=== PATIENT | female | born 1960 | race Caucasian/White ===

== ENCOUNTER 2017-07-07 04:35 | Emergency (ER) | payer MEDICAID ==
[~2017-07-07] VITALS: Ht 147.3 cm; Wt 85.9 kg
[~2017-07-07 04:35] MED LIST: HYDR-3972 PO; METO25TA6 PO; NUTR1POW PO; PANT40TA4 PO; SUCR1TAB28 PO
[2017-07-07 04:42] VITALS: BP 140/77
[2017-07-08] MEDS ORDERED: HYDR-565 PO (10:58)
== END 2017-07-07 05:36 | disposition left against medical advice (07) ==
LOC: ER 04:36
DX: R07.89 Other chest pain (principal); Z53.21 Procedure and treatment not carried out due to patient leaving prior to being seen by health care provider

== ENCOUNTER 2017-09-19 05:16 | Day surgery (SDC) | payer MEDICAID ==
[2017-09-15 11:45] LABS: BASOPHILS % (AUTO) 0.6 % (0-1); EOSINOPHILS # (AUTO) 0.1 X10'3 (0-0.9); EOSINOPHILS % (AUTO) 2.4 % (0-6); LYMPHOCYTES # (AUTO) 1.6 X10'3 (1.1-4.8); LYMPHOCYTES % (AUTO) 29.2 % (21-51); MEAN CORPUSCULAR HEMOGLOBIN 30.1 PG (27.0-31.0); MEAN CORPUSCULAR HGB CONC 34.3 % (33.0-36.5); MEAN CORPUSCULAR VOLUME 87.8 FL (78-98); MEAN PLATELET VOLUME 8.2 FL (7.4-10.4); MONOCYTES # (AUTO) 0.5 X10'3 (0-0.9); MONOCYTES % (AUTO) 8.9 % (2-12); NEUTROPHILS # (AUTO) 3.2 X10'3 (1.8-7.7); NEUTROPHILS % (AUTO) 58.9 % (42-75); PRE OP HEMATOCRIT 41.2 % (35.0-45.0); PRE OP HEMOGLOBIN 14.1 g/dL (12.0-16.0); PRE OP PLATELET COUNT 187 X10'3 (140-440); RED BLOOD COUNT 4.69 X10'6 (4.20-5.60); RED CELL DISTRIBUTION WIDTH 13.6 % (11.5-14.5)
[2017-09-15 11:57] LABS: ALBUMIN 3.5 G/DL (3.4-5.0); ALBUMIN/GLOBULIN RATIO 0.9 (1.1-1.5); ALKALINE PHOSPHATASE 70 IU/L (46-116); BLOOD UREA NITROGEN 9 MG/DL (7-18); BUN/CREATININE RATIO 9.3 (6.6-38.0); CALCIUM 8.8 MG/DL (8.5-10.1); CHLORIDE 105 MMOL/L (99-107); CREATININE 0.97 MG/DL (0.40-0.90); PRE OP ALT 28 U/L (30-65); PRE OP ANION GAP 6 (8-16); PRE OP AST 15 U/L (10-37); PRE OP BILIRUB, TOTAL 0.4 MG/DL (0.0-1.0); PRE OP GLUCOSE 106 MG/DL (70-104); PRE OP POTASSIUM 3.5 MMOL/L (3.4-5.1); PRE OP SODIUM 139 MMOL/L (135-145); TOTAL PROTEIN 7.4 G/DL (6.4-8.2); eGFR 59 ML/MIN
[2017-09-19] VITALS (7 sets, daily range): BP systolic 111–160; BP diastolic 66–93
[~2017-09-19] VITALS: Ht 146.1 cm; Wt 85.2 kg
[~2017-09-19 05:16] MED LIST changes: +LISI10TA4 PO; -NUTR1POW PO; -SUCR1TAB28 PO; +ringers solution, lacted 1,000 ML IV SCH
[2017-09-19] MEDS ORDERED: Cefazolin 2GM/50ML dext iso,osmotic IVPB IV ONE (05:30)
[2017-09-19] MEDS ORDERED: famotidine 20mg tablet PO ONE (05:30)
[2017-09-19] MEDS ORDERED: DOCUMENT DATE & TIME OF BETA-BLOCKER PO ONE (05:30)
[2017-09-19] MEDS ORDERED: LIDOcaine 1% (10mg/ml) 2ml vial ONE (06:00)
[2017-09-19] MEDS ORDERED: BUPIVAcaine/PF 2.5mg/ml (0.25%) 10ml vial ONE ×2 (06:59→07:15)
[2017-09-19] MEDS ORDERED: LIDOcaine 0.5% (5mg/ml) 50ml vial ONE (07:44)
[2017-09-19] MEDS ORDERED: fentaNYL/PF 50MCG/1 ML 2ML syringe ONE ×2 (07:46→08:22)
[2017-09-19] MEDS ORDERED: MIDAZolam 5mg/5ml vial ONE (07:46)
[2017-09-19] MEDS ORDERED: ringers solution, lacted 1,000 ML IV SCH (08:51)
[2017-09-19] MEDS ORDERED: morphine 4 MG/ML inj SYRINge IV PRN ×2 (08:55)
[2017-09-19] MEDS ORDERED: meperidine/PF 25mg/ml syringe IV PRN ×3 (08:55)
[2017-09-19] MEDS ORDERED: proCHLORperazine 10 MG/2 ml inj IV PRN (08:55)
[2017-09-19] MEDS ORDERED: ondansetron/PF 4mg/2ml inj IV PRN (08:55)
== END 2017-09-19 09:25 | disposition home or self-care (01) ==
LOC: PAS 05:16
PROVIDERS: ATTEND Orthopaedic Surgery Hand Surgery
DX: G56.01 Carpal tunnel syndrome, right upper limb (principal); D17.21 Benign lipomatous neoplasm of skin and subcutaneous tissue of right arm; G47.33 Obstructive sleep apnea (adult) (pediatric); I10 Essential (primary) hypertension; E66.9 Obesity, unspecified; B19.20 Unspecified viral hepatitis C without hepatic coma; Z68.39 Body mass index [BMI] 39.0-39.9, adult; Z79.891 Long term (current) use of opiate analgesic; Z98.890 Other specified postprocedural states; Z79.899 Other long term (current) drug therapy
CPT/HCPCS: 25075; 29848; 36415; 80053; 85025; A6222; A6449; J0690; J2001; J2250; J3010; J3490; J7120; A7000

== ENCOUNTER 2018-12-07 20:56 | Emergency (ER) | payer MEDICAID ==
[~2018-12-07] VITALS: Ht 144.8 cm; Wt 80.0 kg
[~2018-12-07 20:56] MED LIST changes: -ringers solution, lacted 1,000 ML IV SCH
[2018-12-07] MEDS ORDERED: ketorolac trometh. 30mg/ml inj. IV ONE (21:40)
[2018-12-07] MEDS ORDERED: morphine 4 MG/ML inj SYRINge IV PRN (21:40)
[2018-12-07] MEDS ORDERED: normal saline 1000ML IV soln IVB ONE (21:40)
[2018-12-07] MEDS ORDERED: ondansetron/PF 4mg/2ml inj IV ONE (21:40)
[2018-12-07 21:44] LABS: EOSINOPHILS # (AUTO) 0.1 X10'3 (0-0.9); EOSINOPHILS % (AUTO) 2.8 % (0-6); HEMATOCRIT 37.9 % (35.0-45.0); LYMPHOCYTES # (AUTO) 1.6 X10'3 (1.1-4.8); LYMPHOCYTES % (AUTO) 39.9 % (21-51); MEAN CORPUSCULAR HEMOGLOBIN 31.1 PG (27.0-31.0); MEAN CORPUSCULAR HGB CONC 34.2 g/dL (33.0-36.5); MEAN CORPUSCULAR VOLUME 91.1 FL (78-98); MEAN PLATELET VOLUME 8.5 FL (7.4-10.4); MONOCYTES # (AUTO) 0.3 X10'3 (0-0.9); MONOCYTES % (AUTO) 7.9 % (2-12); NEUTROPHILS % (AUTO) 48.4 % (42-75); PLATELET COUNT 161 X10'3 (140-440); RED BLOOD COUNT 4.16 X10'6 (4.20-5.60); RED CELL DISTRIBUTION WIDTH 14.5 % (11.5-14.5); WHITE BLOOD COUNT 4.1 X10'3 (4.5-11.0)
[2018-12-07 21:57] LABS: ALANINE AMINOTRANSFERASE 24 U/L (12-78); ALBUMIN 3.9 G/DL (3.4-5.0); ALBUMIN/GLOBULIN RATIO 1.1 (1.1-1.5); ALKALINE PHOSPHATASE 61 IU/L (46-116); AMYLASE 94 U/L (25-115); ANION GAP 7 (8-16); ASPARTATE AMINO TRANSFERASE 15 U/L (10-37); BILIRUBIN,TOTAL 0.4 MG/DL (0.1-1.0); BLOOD UREA NITROGEN 6 MG/DL (7-18); BUN/CREATININE RATIO 8.2 (6.6-38.0); CALCIUM 8.5 MG/DL (8.5-10.1); CHLORIDE 105 MMOL/L (99-107); CREATININE 0.73 MG/DL (0.40-0.90); GLUCOSE 104 MG/DL (70-104); LIPASE 174 U/L (73-393); POTASSIUM 3.5 MMOL/L (3.5-5.1); SODIUM 141 MMOL/L (135-145); TOTAL CARBON DIOXIDE 29.4 MMOL/L (24-32); TOTAL PROTEIN 7.5 G/DL (6.4-8.2); eGFR 82 ML/MIN
[2018-12-07 22:22] LABS: URINE HCG NEGATIVE (NEG)
[2018-12-07 22:28] LABS: CLARITY,URINE CLEAR (Clear); COLOR,URINE YELLOW (Yellow); GLUCOSE, URINE NEGATIVE (Neg); KETONES,URINE NEGATIVE (Neg); LEUKOCYTE ESTERASE ,URINE SMALL (Neg); NITRITES, URINE NEGATIVE (Neg); OCCULT BLOOD,URINE NEGATIVE (Neg); PH,URINE 6.5 (4.8-8.0); PROTEIN,URINE NEGATIVE (Neg); UROBILINOGEN,URINE 0.2 E.U/dL (0.2-1.0)
[2018-12-07 22:29] LABS: UA COLLECTION TYPE CLN CATCH MIDSTREAM
[2018-12-07 22:39] LABS: BACTERIA,URINE 1+ /HPF (Neg); MUCUS STRANDS NONE SEEN /LPF (Neg); RBC,URINE 0-2 /HPF (0-2); SQUAMOUS EPITHELIAL CELL,UR MODERATE /LPF (FEW); WBC,URINE 0-4 /HPF (0-4)
[2018-12-07] MEDS ORDERED: HYDROcodone/acetaminophen 10/325mg tab PO ONE (22:40)
[2018-12-07] MEDS ORDERED: ondansetron 4mg rapidly disintigrating tab PO ONE (22:40)
[2018-12-07 22:56] VITALS: BP 126/90
== END 2018-12-07 22:59 | disposition home or self-care (01) ==
LOC: ER 20:56
DX: R10.13 Epigastric pain (principal); R10.12 Left upper quadrant pain; I10 Essential (primary) hypertension; K21.9 Gastro-esophageal reflux disease without esophagitis; G89.29 Other chronic pain; Z79.899 Other long term (current) drug therapy
CPT/HCPCS: 36415; 80053; 81001; 81025; 82150; 83690; 85025; 85610; 87088; 99283; J7030

== ENCOUNTER 2024-06-15 02:43 | Inpatient (IN) | payer MEDICAID ==
[~2024-06-15] VITALS: Ht 144.8 cm; Wt 74.0 kg
[~2024-06-15 02:43] MED LIST changes: +LISI10TA27 PO; -LISI10TA4 PO; +LOP25T PO; -METO25TA6 PO; -PANT40TA4 PO; +PANT40TA54 PO
[2024-06-15 03:06] LABS: BASOPHILS % (AUTO) 0.6 % (0-1); EOSINOPHILS # (AUTO) 0.3 X10'3 (0-0.9); EOSINOPHILS % (AUTO) 4.5 % (0-6); HEMATOCRIT 45.6 % (35.0-45.0); HEMOGLOBIN 15.2 g/dl (12.0-16.0); LYMPHOCYTES # (AUTO) 0.9 X10'3 (1.1-4.8); LYMPHOCYTES % (AUTO) 14.6 % (21-51); MEAN CORPUSCULAR HGB CONC 33.4 g/dL (33.0-36.5); MEAN PLATELET VOLUME 8.7 FL (7.4-10.4); MONOCYTES # (AUTO) 0.4 X10'3 (0-0.9); MONOCYTES % (AUTO) 6.9 % (2-12); NEUTROPHILS # (AUTO) 4.5 X10'3 (1.8-7.7); NEUTROPHILS % (AUTO) 73.4 % (42-75); PLATELET COUNT 169 X10'3 (140-440); RED BLOOD COUNT 5.25 X10'6 (4.20-5.60); WHITE BLOOD COUNT 6.1 X10'3 (4.5-11.0)
[2024-06-15 03:33] LABS: ALANINE AMINOTRANSFERASE 99 U/L (12-78); ALBUMIN 3.2 G/DL (3.4-5.0); ALKALINE PHOSPHATASE 152 IU/L (46-116); ANION GAP 7 (8-16); ASPARTATE AMINO TRANSFERASE 143 U/L (10-37); BLOOD UREA NITROGEN 12 MG/DL (7-18); BUN/CREATININE RATIO 14.3 (10.0-20.0); CALCIUM 9.5 MG/DL (8.5-10.1); CHLORIDE 104 MMOL/L (99-107); CREATININE 0.84 MG/DL (0.40-0.90); GLUCOSE 141 MG/DL (70-104); POTASSIUM 4.2 MMOL/L (3.5-5.1); SODIUM 139 MMOL/L (135-145); TOTAL PROTEIN 6.3 G/DL (6.4-8.2); eCRCL 42 ML/MIN; eGFR 68 ML/MIN
[2024-06-15 03:39] LABS: LIPASE 69 U/L (16-77); PRO BRAIN NATRIURETIC PEPTIDE 43 PG/ML (0-125)
[2024-06-15 04:35] LABS: URINE AMPHETAMINE SCREEN NEGATIVE (Neg); URINE BARBITUATE SCREEN NEGATIVE (Neg); URINE BENZODIAZEPINES SCREEN NEGATIVE (Neg); URINE CANNABINOID SCREEN NEGATIVE (Neg); URINE COCAINE SCREEN NEGATIVE (Neg); URINE METHADONE SCREEN NEGATIVE (Neg); URINE OPIATE SCREEN POSITIVE (Neg); URINE PHENCYCLIDINE SCREEN NEGATIVE (Neg)
[2024-06-15] MEDS: HYDROmorphone inj. 0.5 MG/0.5 ML DISP.SYRIN IV ONE (04:39)
[2024-06-15] MEDS ORDERED: magnesium Cl slow-release 64mg tablet PO PRN (05:25)
[2024-06-15] MEDS ORDERED: ondansetron/PF 4mg/2ml inj IV PRN (05:25)
[2024-06-15] MEDS ORDERED: potassium Cl 40MEQ/1/2NS 520ml 520 ML IV PRN (05:25)
[2024-06-15] MEDS ORDERED: potassium Cl 20 mEq SR tablet PO PRN ×2 (05:25)
[2024-06-15] MEDS ORDERED: magnesium sulf-water 4G/100mL 100 ML IV PRN (05:25)
[2024-06-15] MEDS ORDERED: magnesium sulf-water 2g/50mL 50 ML IV PRN (05:25)
[2024-06-15] MEDS ORDERED: magnesium hydroxide 30ml (MOM) UD suspension PO PRN (05:25)
[2024-06-15] MEDS ORDERED: morphine 2 MG/ML inj. syringe IV PRN (05:25)
[2024-06-15] MEDS ORDERED: acetaminophen 325mg tablet PO PRN (05:25)
[2024-06-15] MEDS ORDERED: mag hydrox/Alum hydrox/simeth 30ml oral suspension PO PRN (05:25)
[2024-06-15] MEDS ORDERED: [UNRECOGNIZED DRUG - CODE] (05:46)
[2024-06-15] MEDS ORDERED: ONDA-243 (05:46)
[2024-06-15] MEDS ORDERED: FLUT1BLS7 (05:46)
[2024-06-15] MEDS ORDERED: NYST100069 PO (05:46)
[2024-06-15] MEDS ORDERED: IBUP-1984 PO (05:46)
[2024-06-15] MEDS: normal saline 1000ml 1,000 ML IV SCH (06:11)
[2024-06-15 06:38] LABS: C-REACTIVE PROTEIN 0.52 MG/DL (0.0-0.5); MAGNESIUM 2.2 MG/DL (1.5-2.4); POTASSIUM 4.3 MMOL/L (3.5-5.1)
[2024-06-15] MEDS ORDERED: ESTR10TA9 VG (06:55)
[2024-06-15 07:16] LABS: HEMOGLOBIN A1C 5.4 % (4.5-6.2)
[2024-06-15 07:35] VITALS: BP 128/84; PULSE 85; RESP 16; TEMP 97.4; O2SAT 97
[2024-06-15 08:00] VITALS: RESP 16; O2SAT 95
[2024-06-15] MEDS: K and/or MAG REPLACEMENT MC SCH (08:00)
[2024-06-15] MEDS: docusate sod 100mg capsule PO SCH (08:43)
[2024-06-15] MEDS: HYDROmorphone/PF 0.2 MG/ML SYRINGE IV PRN (09:37)
[2024-06-15 10:00] VITALS: BP 130/81; PULSE 60; RESP 16; TEMP 97.6; O2SAT 94
[2024-06-15] MEDS ORDERED: HYDROmorphone/PF 0.2 MG/ML SYRINGE IV PRN (12:45)
[2024-06-15] MEDS: clonazePAM 1mg tablet PO ONE (13:44)
[2024-06-15] MEDS: GADOTERATE MEGLUMINE 7.5 MMOL/15 ML VIAL IV ONE (18:28)
[2024-06-15 22:00] VITALS: BP 130/71; PULSE 71; RESP 21; TEMP 97.9; O2SAT 95
[2024-06-15] MEDS: HYDROmorphone inj. 0.5 MG/0.5 ML DISP.SYRIN IV PRN (22:21)
[2024-06-16] MEDS: ketorolac trometh 15mg/ml vial 15 MG/ML ML IM ONE (01:45)
[2024-06-16] MEDS: HYDROmorphone 1 mg/ml syringe IV PRN (05:13)
[2024-06-16 05:18] LABS: BASOPHILS # (AUTO) 0.1 X10'3 (0-0.2); EOSINOPHILS # (AUTO) 0.5 X10'3 (0-0.9); EOSINOPHILS % (AUTO) 8.1 % (0-6); HEMATOCRIT 41.2 % (35.0-45.0); HEMOGLOBIN 13.8 g/dl (12.0-16.0); LYMPHOCYTES # (AUTO) 1.3 X10'3 (1.1-4.8); LYMPHOCYTES % (AUTO) 23.6 % (21-51); MEAN CORPUSCULAR HEMOGLOBIN 29.1 PG (27.0-31.0); MEAN CORPUSCULAR HGB CONC 33.5 g/dL (33.0-36.5); MEAN CORPUSCULAR VOLUME 86.9 FL (78-98); MEAN PLATELET VOLUME 9.4 FL (7.4-10.4); MONOCYTES # (AUTO) 0.5 X10'3 (0-0.9); MONOCYTES % (AUTO) 8.5 % (2-12); NEUTROPHILS # (AUTO) 3.3 X10'3 (1.8-7.7); NEUTROPHILS % (AUTO) 58.8 % (42-75); PLATELET COUNT 132 X10'3 (140-440); RED BLOOD COUNT 4.75 X10'6 (4.20-5.60); RED CELL DISTRIBUTION WIDTH 12.9 % (11.5-14.5); WHITE BLOOD COUNT 5.6 X10'3 (4.5-11.0)
[2024-06-16 05:35] LABS: ALANINE AMINOTRANSFERASE 72 U/L (12-78); ALBUMIN 2.8 G/DL (3.4-5.0); ALKALINE PHOSPHATASE 140 IU/L (46-116); ANION GAP 11 (8-16); ASPARTATE AMINO TRANSFERASE 70 U/L (10-37); BILIRUBIN,TOTAL 3.9 MG/DL (0.1-1.0); BLOOD UREA NITROGEN 11 MG/DL (7-18); BUN/CREATININE RATIO 16.4 (10.0-20.0); CALCIUM 9.1 MG/DL (8.5-10.1); CHLORIDE 107 MMOL/L (99-107); CREATININE 0.67 MG/DL (0.40-0.90); GLUCOSE 84 MG/DL (70-104); MAGNESIUM 2.1 MG/DL (1.5-2.4); SODIUM 142 MMOL/L (135-145); TOTAL CARBON DIOXIDE 24.4 MMOL/L (24-32); TOTAL PROTEIN 5.7 G/DL (6.4-8.2); eCRCL 52 ML/MIN; eGFR 89 ML/MIN
[2024-06-16 05:46] LABS: POTASSIUM 4.2 MMOL/L (3.5-5.1)
[2024-06-16 06:56] VITALS: BP 121/72; PULSE 79; RESP 19; TEMP 98.2; O2SAT 96
[2024-06-16 08:00] VITALS: RESP 19; O2SAT 96
[2024-06-16] MEDS: lisinopril 10 MG tablet PO SCH (08:54)
[2024-06-16 18:00] VITALS: BP 133/76; PULSE 75; RESP 19; TEMP 99; O2SAT 96
[2024-06-16 22:00] VITALS: BP 124/69; PULSE 76; RESP 18; TEMP 97.6; O2SAT 94
[2024-06-17] VITALS (21 sets, daily range): BP systolic 103–136; BP diastolic 60–82; PULSE 63–95; RESP 12–24; TEMP 97.8–99.3; O2SAT 90–100
[2024-06-17 04:12] LABS: BASOPHILS # (AUTO) 0.1 X10'3 (0-0.2); BASOPHILS % (AUTO) 1.1 % (0-1); EOSINOPHILS # (AUTO) 0.3 X10'3 (0-0.9); EOSINOPHILS % (AUTO) 7.2 % (0-6); HEMATOCRIT 40.2 % (35.0-45.0); HEMOGLOBIN 13.5 g/dl (12.0-16.0); LYMPHOCYTES # (AUTO) 1.3 X10'3 (1.1-4.8); LYMPHOCYTES % (AUTO) 26.8 % (21-51); MEAN CORPUSCULAR HEMOGLOBIN 29.3 PG (27.0-31.0); MEAN CORPUSCULAR HGB CONC 33.6 g/dL (33.0-36.5); MEAN CORPUSCULAR VOLUME 87.2 FL (78-98); MEAN PLATELET VOLUME 8.7 FL (7.4-10.4); MONOCYTES # (AUTO) 0.6 X10'3 (0-0.9); MONOCYTES % (AUTO) 12.3 % (2-12); NEUTROPHILS # (AUTO) 2.5 X10'3 (1.8-7.7); NEUTROPHILS % (AUTO) 52.6 % (42-75); PLATELET COUNT 145 X10'3 (140-440); RED BLOOD COUNT 4.61 X10'6 (4.20-5.60); RED CELL DISTRIBUTION WIDTH 12.7 % (11.5-14.5); WHITE BLOOD COUNT 4.7 X10'3 (4.5-11.0)
[2024-06-17 04:19] LABS: APTT 46 SECONDS (22-32)
[2024-06-17 04:24] LABS: ALANINE AMINOTRANSFERASE 64 U/L (12-78); ALBUMIN 2.7 G/DL (3.4-5.0); ALBUMIN/GLOBULIN RATIO 0.9 (1.1-1.5); ALKALINE PHOSPHATASE 131 IU/L (46-116); ANION GAP 3 (8-16); ASPARTATE AMINO TRANSFERASE 38 U/L (10-37); BILIRUBIN,TOTAL 0.8 MG/DL (0.1-1.0); BLOOD UREA NITROGEN 8 MG/DL (7-18); BUN/CREATININE RATIO 11.8 (10.0-20.0); CALCIUM 8.8 MG/DL (8.5-10.1); CHLORIDE 110 MMOL/L (99-107); CREATININE 0.68 MG/DL (0.40-0.90); GLUCOSE 109 MG/DL (70-104); MAGNESIUM 1.9 MG/DL (1.5-2.4); POTASSIUM 3.9 MMOL/L (3.5-5.1); SODIUM 142 MMOL/L (135-145); TOTAL CARBON DIOXIDE 28.7 MMOL/L (24-32); TOTAL PROTEIN 5.6 G/DL (6.4-8.2); eCRCL 52 ML/MIN; eGFR 87 ML/MIN
[2024-06-17 08:12] LABS: CANCER ANTIGEN 125 35.4 U/mL (0.0-38.1); CARCINOEMBRYONIC ANTIGEN 3.7 ng/mL (0.0-4.7)
[2024-06-17] MEDS ORDERED: LIDOcaine 1% 30ml preserv. free vial ONE (13:50)
[2024-06-17] MEDS ORDERED: BUPIVAcaine 2.5mg/ml inj 50ml vial (contains preservative) ONE (13:50)
[2024-06-17] MEDS: INDOCYANINE GREEN 25 MG/10 ML VIAL IV ONE (14:20)
[2024-06-17] MEDS ORDERED: morphine 2 MG/ML inj. syringe IV PRN ×2 (15:30→15:35)
[2024-06-17] MEDS ORDERED: ondansetron/PF 4mg/2ml inj IV PRN ×2 (15:30→15:35)
[2024-06-17] MEDS ORDERED: labetalol 20mg/4ml (5mg/ml) syringe IV PRN ×2 (15:30→15:35)
[2024-06-17] MEDS ORDERED: enalaprilat 1.25mg/ml 2ml vial IV PRN ×2 (15:30→15:35)
[2024-06-17] MEDS ORDERED: meperidine/PF 25mg/ml syringe IV PRN ×6 (15:30→15:35)
[2024-06-17] MEDS ORDERED: proCHLORperazine 10 MG/2 ml inj IV PRN ×2 (15:30→15:35)
[2024-06-17] MEDS ORDERED: ringers solution, lacted 1,000 ML IV SCH (15:35)
[2024-06-17] MEDS ORDERED: morphine 4 MG/ML inj SYRINge IV PRN (15:35)
[2024-06-17] MEDS ORDERED: midazolam 1 mg/ML 2ml injection ONE (16:35)
[2024-06-17] MEDS ORDERED: fentaNYL/PF 50MCG/1 ML 2ML syringe ONE ×2 (16:35→17:56)
[2024-06-17] MEDS ORDERED: LIDOcaine 1%/PF 5ML 10 MG/ML VIAL ONE (16:36)
[2024-06-17] MEDS ORDERED: propofol inj 20 ML IV ONE (16:36)
[2024-06-17] MEDS ORDERED: sevoflurane 250ml liquid IH ONE (17:10)
[2024-06-17] MEDS ORDERED: ceFAZolin 1000mg inj ONE ×2 (17:57→17:58)
[2024-06-17] MEDS ORDERED: dexamethasone sod phosphate 4mg/ml inj. ONE (17:58)
[2024-06-17] MEDS ORDERED: rocuronium 10mg/ml inj IV ONE ×2 (18:57)
[2024-06-17] MEDS ORDERED: ondansetron/PF 4mg/2ml inj ONE (19:00)
[2024-06-17] MEDS ORDERED: glycopyrrolate 0.2mg/ml inj ONE (19:08)
[2024-06-17] MEDS ORDERED: neostigmine methylsulfate 1 MG/ML 10ml vial ONE (19:08)
[2024-06-17] MEDS ORDERED: naloxone 0.4 mg/ml inj IV PRN (19:20)
[2024-06-17] MEDS ORDERED: sugammadex 200mg/2ml injection IV ONE (19:22)
[2024-06-17] MEDS: morphine 4 MG/ML inj SYRINge IV PRN (19:40)
[2024-06-17] MEDS: HYDROmorph/NS 0.2 mg/ml PCA 100 ML IV SCH (19:57)
[2024-06-17] MEDS: sennosides/docusate sodium tablet PO SCH (21:00)
[2024-06-17] MEDS: docusate sod 100mg capsule PO SCH (21:00)
[2024-06-17] MEDS: ringers solution, lacted 1,000 ML IV SCH (22:00)
[2024-06-17] MEDS: normal saline 1000ml 1,000 ML IV SCH (22:06)
[2024-06-18 00:15] VITALS: BP 124/64; PULSE 94; O2SAT 91
[2024-06-18 04:59] LABS: BASOPHILS % (AUTO) 0.2 % (0-1); EOSINOPHILS % (AUTO) 0.1 % (0-6); HEMATOCRIT 40.8 % (35.0-45.0); HEMOGLOBIN 13.6 g/dl (12.0-16.0); LYMPHOCYTES # (AUTO) 0.6 X10'3 (1.1-4.8); LYMPHOCYTES % (AUTO) 9.1 % (21-51); MEAN CORPUSCULAR HEMOGLOBIN 29.1 PG (27.0-31.0); MEAN CORPUSCULAR HGB CONC 33.3 g/dL (33.0-36.5); MEAN CORPUSCULAR VOLUME 87.4 FL (78-98); MEAN PLATELET VOLUME 8.8 FL (7.4-10.4); MONOCYTES # (AUTO) 0.4 X10'3 (0-0.9); MONOCYTES % (AUTO) 6.1 % (2-12); NEUTROPHILS # (AUTO) 5.6 X10'3 (1.8-7.7); NEUTROPHILS % (AUTO) 84.5 % (42-75); PLATELET COUNT 157 X10'3 (140-440); RED BLOOD COUNT 4.66 X10'6 (4.20-5.60); RED CELL DISTRIBUTION WIDTH 13.1 % (11.5-14.5); WHITE BLOOD COUNT 6.7 X10'3 (4.5-11.0)
[2024-06-18 05:14] LABS: ALANINE AMINOTRANSFERASE 73 U/L (12-78); ALBUMIN 2.9 G/DL (3.4-5.0); ALKALINE PHOSPHATASE 123 IU/L (46-116); ANION GAP 7 (8-16); ASPARTATE AMINO TRANSFERASE 65 U/L (10-37); BILIRUBIN,TOTAL 0.6 MG/DL (0.1-1.0); BLOOD UREA NITROGEN 9 MG/DL (7-18); BUN/CREATININE RATIO 12.2 (10.0-20.0); CALCIUM 9.4 MG/DL (8.5-10.1); CHLORIDE 102 MMOL/L (99-107); CREATININE 0.74 MG/DL (0.40-0.90); GLUCOSE 128 MG/DL (70-104); MAGNESIUM 1.7 MG/DL (1.5-2.4); POTASSIUM 4.3 MMOL/L (3.5-5.1); SODIUM 136 MMOL/L (135-145); TOTAL CARBON DIOXIDE 27.2 MMOL/L (24-32); TOTAL PROTEIN 5.9 G/DL (6.4-8.2); eCRCL 47 ML/MIN; eGFR 79 ML/MIN
[2024-06-18 06:00] VITALS: BP 130/69; PULSE 82; RESP 20; TEMP 98; O2SAT 97
[2024-06-18 10:00] VITALS: BP 99/51; PULSE 78; RESP 20; TEMP 98.6; O2SAT 97
[2024-06-18 18:00] VITALS: BP 100/77; PULSE 80; RESP 17; TEMP 97.8; O2SAT 96
[2024-06-18] MEDS: PCA WASTE DOCUMENTATION 1 MG ML MC SCH (19:41)
[2024-06-18 20:00] VITALS: RESP 17; O2SAT 96
[2024-06-18] MEDS: oxyCODONE/APAP 10/325mg tablet PO PRN (21:07)
[2024-06-18] MEDS ORDERED: BECL10.62 INH (21:50)
[2024-06-18] MEDS: ESTRADIOL 10 MCG VG SCH (21:55)
[2024-06-18 22:00] VITALS: BP 94/48; PULSE 97; RESP 16; TEMP 98; O2SAT 95
[2024-06-19] VITALS (10 sets, daily range): BP systolic 86–110; BP diastolic 47–51; PULSE 82–95; RESP 16–19; TEMP 97.9–99.2; O2SAT 92–98
[2024-06-19] MEDS: ipratropium/albuterol 3ml nebule NEB SCH (00:04)
[2024-06-19] MEDS: oxyCODONE/APAP 10/325mg tablet PO PRN (04:39)
[2024-06-19 05:33] LABS: BASOPHILS % (AUTO) 0.4 % (0-1); EOSINOPHILS # (AUTO) 0.2 X10'3 (0-0.9); EOSINOPHILS % (AUTO) 2.9 % (0-6); HEMATOCRIT 37.1 % (35.0-45.0); HEMOGLOBIN 12.6 g/dl (12.0-16.0); LYMPHOCYTES # (AUTO) 1.7 X10'3 (1.1-4.8); LYMPHOCYTES % (AUTO) 25.6 % (21-51); MEAN CORPUSCULAR HEMOGLOBIN 29.3 PG (27.0-31.0); MEAN CORPUSCULAR VOLUME 86.3 FL (78-98); MEAN PLATELET VOLUME 9.1 FL (7.4-10.4); MONOCYTES # (AUTO) 0.8 X10'3 (0-0.9); MONOCYTES % (AUTO) 11.9 % (2-12); NEUTROPHILS # (AUTO) 3.8 X10'3 (1.8-7.7); NEUTROPHILS % (AUTO) 59.2 % (42-75); PLATELET COUNT 137 X10'3 (140-440); RED CELL DISTRIBUTION WIDTH 12.8 % (11.5-14.5); WHITE BLOOD COUNT 6.5 X10'3 (4.5-11.0)
[2024-06-19 05:51] LABS: ALANINE AMINOTRANSFERASE 64 U/L (12-78); ALBUMIN 2.7 G/DL (3.4-5.0); ALKALINE PHOSPHATASE 103 IU/L (46-116); ANION GAP 6 (8-16); ASPARTATE AMINO TRANSFERASE 55 U/L (10-37); BLOOD UREA NITROGEN 7 MG/DL (7-18); BUN/CREATININE RATIO 10.1 (10.0-20.0); CALCIUM 9.1 MG/DL (8.5-10.1); CHLORIDE 101 MMOL/L (99-107); CREATININE 0.69 MG/DL (0.40-0.90); GLUCOSE 97 MG/DL (70-104); MAGNESIUM 1.7 MG/DL (1.5-2.4); POTASSIUM 3.7 MMOL/L (3.5-5.1); SODIUM 135 MMOL/L (135-145); TOTAL CARBON DIOXIDE 28.3 MMOL/L (24-32); TOTAL PROTEIN 5.5 G/DL (6.4-8.2); eCRCL 51 ML/MIN; eGFR 86 ML/MIN
[2024-06-19] MEDS: pantoprazole 40mg Tablet.DR PO SCH (09:02)
[2024-06-19] MEDS ORDERED: IPRA3AMP9 NEB (11:15)
[2024-06-19] MEDS ORDERED: OXYC1TAB17 PO ×2 (11:15→11:50)
== END 2024-06-19 13:50 | disposition home or self-care (01) | DRG 260 ==
LOC: ER 02:44 → ED HOLD 05:27 → SUR 3N 07:40 → ORTHO 4S 06-18 16:30
PROVIDERS: ADMIT Internal Medicine; ATTEND Family Medicine
PROC: BW211ZZ Computerized Tomography (CT Scan) of Abdomen and Pelvis using Low Osmolar Contrast (ICD-10-PCS; 2024-06-15)
PROC: 8E0W4CZ Robotic Assisted Procedure of Trunk Region, Percutaneous Endoscopic Approach (ICD-10-PCS; 2024-06-17)
PROC: 0FB04ZZ Excision of Liver, Percutaneous Endoscopic Approach (ICD-10-PCS; 2024-06-17)
PROC: BF121ZZ Fluoroscopy of Gallbladder using Low Osmolar Contrast (ICD-10-PCS; 2024-06-17)
PROC: 0F9430Z Drainage of Gallbladder with Drainage Device, Percutaneous Approach (ICD-10-PCS; 2024-06-17)
PROC: 0FT44ZZ Resection of Gallbladder, Percutaneous Endoscopic Approach (ICD-10-PCS; principal; 2024-06-17 17:10)
DX: C23 Malignant neoplasm of gallbladder (principal); B37.0 Candidal stomatitis; E70.1 Other hyperphenylalaninemias; K76.0 Fatty (change of) liver, not elsewhere classified; K83.8 Other specified diseases of biliary tract; I10 Essential (primary) hypertension; J44.9 Chronic obstructive pulmonary disease, unspecified; K21.9 Gastro-esophageal reflux disease without esophagitis; R74.01 Elevation of levels of liver transaminase levels; B19.20 Unspecified viral hepatitis C without hepatic coma
CPT/HCPCS: 36415; 71045; 74177; 74181; 74183; 80053; 80305; 82378; 82948; 83036; 83690; 83735; 83880; 84132; 84145; 84484; 85025; 85730; 86140; 86301; 86304; 87081; 93005; 94640; 94760; 96374; 97116; 97161; 97530; 99285; A4215; A4615; A4618; A6258; A6449; A7000; G0378; J0131; J0690; J1100; J1171; J1885; J2003; J2250; J2270; J2405; J2704; J2710; J3010; J3490; J7030; J7120

== ENCOUNTER 2024-08-27 08:36 | Outpatient (CLI) | payer MEDICAID ==
[~2024-08-27 08:36] MED LIST changes: +BECL10.62 INH; +ESTR10TA9 VG; +FLUT1BLS7; +IBUP-1984 PO; +IPRA3AMP9 NEB; -LOP25T PO; +NYST100069 PO; +ONDA-243; +OXYC1TAB17 PO; +[UNRECOGNIZED DRUG - CODE]
[2024-08-27 09:23] VITALS: PULSE 84; RESP 16; O2SAT 96
--- NOTE | 2024-08-27 17:43 | PROCEDURE NOTE - Respiratory ---
Procedure Note-Respiratory Providers to CC Copies To 1: CHAO DUDLEY MD Procedure Name: This is a spirometry study dated August 27, 2024. Spirometry measurements: Both the forced vital capacity and the FEV1 are in the normal range. The FEV1 ratio is somewhat elevated. The flow rate measurements are in the normal range. Bronchodilator was not administered as part of the study. Conclusion: This study is normal or very near normal. There is no evidence for obstructive ventilatory defect. This study does not confirm the diagnosis of COPD. If anything, there is a slight tendency suggesting a restrictive ventilatory defect. The vital capacity is reduced but remains in the lower rang e of normal. Restrictive lung disease is often seen in diseases involving the interstitial aspects of the lung. Clinical correlation is suggested. There is no clear indication for the use of bronchodilator medication based on these results. We have no previous studies for comparison. LAISHA CARRERA MD Aug 27, 2024 17:43
== END 2024-08-27 23:59 | disposition home or self-care (01) ==
LOC: RT 08:36
PROVIDERS: ATTEND Family Medicine
DX: J44.9 Chronic obstructive pulmonary disease, unspecified (principal); J98.8 Other specified respiratory disorders
CPT/HCPCS: 94010; 94760